=== PATIENT | male | born 1970 | race Hispanic/Latino ===

== ENCOUNTER 2017-04-27 14:23 | Emergency (ER) | payer OTHER ==
[2017-04-27 14:46] VITALS: BP 142/81
[2017-04-27 16:50] LABS: Basophils % (Auto) 0.4 % (0.0-1.8); Eosinophils % (Auto) 0.7 % (0.0-4.3); Hematocrit 42.7 % (35.5-45.6); Hemoglobin 14.2 gm/dl (11.8-15.2); Mean Corpuscular HGB Conc 33 % (32-34); Mean Corpuscular Hemoglobin 29 pg (28-32); Mean Corpuscular Volume 88 fl (84-94); Platelet Count 285 K/mm3 (140-440); Red Blood Count 4.83 M/mm3 (3.65-5.03); Red Cell Distribution Width 14.4 % (13.2-15.2); White Blood Count 8.2 K/mm3 (4.5-11.0)
[2017-04-27 17:24] LABS: Anion Gap 17 mmol/L; BUN/Creatinine Ratio 27; Blood Urea Nitrogen 16 mg/dL (9-20); Calcium 8.9 mg/dL (8.4-10.2); Carbon Dioxide 22 mmol/L (22-30); Chloride 101.1 mmol/L (98-107); Glucose 84 mg/dL (75-100); Potassium 3.6 mmol/L (3.6-5.0); Sodium 136 mmol/L (137-145)
== END 2017-04-27 21:00 | disposition left against medical advice (07) ==
LOC: ED 14:23
DX: R06.02 Shortness of breath (principal); R07.9 Chest pain, unspecified; Z53.21 Procedure and treatment not carried out due to patient leaving prior to being seen by health care provider
CPT/HCPCS: 36415; 80048; 84484; 85025; 93005; 93010